=== PATIENT | male | born 1960 | race Caucasian/White ===

== ENCOUNTER 2017-10-17 17:49 | Emergency (ER) | payer OTHER ==
[~2017-10-17] VITALS: Ht 175.3 cm; Wt 83.9 kg
[~2017-10-17 17:49] MED LIST: ASPIRIN; ASPIRIN325 PO; CLOPIDOGREL; EFFIENT10 MG PO; EZETIMIBE; LOPRESSOR; NITROGLYCERIN0.4 MG SUBLING; PLAVIX 75 MG TA75 M1 PO; QUINAPRIL HCL5 MG PO; QUINU5 PD; SIMVASTATIN40 MG PO; ZETIA10 MG PO; ZOCOR
[2017-10-17] MEDS ORDERED: KEFLEX500 M1 PO (18:44)
[2017-10-17 18:52] VITALS: BP 130/80
== END 2017-10-17 18:53 | disposition home or self-care (01) ==
LOC: M.ERS 17:49
DX: S61.212A Laceration without foreign body of right middle finger without damage to nail, initial encounter (principal); E78.5 Hyperlipidemia, unspecified; I25.10 Atherosclerotic heart disease of native coronary artery without angina pectoris; W22.03XA Walked into furniture, initial encounter; Y93.89 Activity, other specified; Y92.89 Other specified places as the place of occurrence of the external cause; Y99.8 Other external cause status

== ENCOUNTER → 2018-05-17 | Outpatient (CLI) | payer OTHER ==
[~2018-05-17] MED LIST changes: +KEFLEX500 M1 PO
--- NOTE | 2018-05-17 11:11 | CARDNUC ---
[place] [address] CARDIAC NUCLEAR IMAGING REPORT Name: MYRNA DUMONT Room: [facility]#: [id number] Admission: 05/17/18 Attend Phys: Zac Quinones, Discharge: Date of : 56 Date of Service: 05/17/18 1111 Report #: [id number] THIS REPORT FOR: //name// APPROVED REPORT Study performed: 05/17/2018 07:45:00 Indication: sp pci Patient Location: Out-Patient Stress Tech: [facility] Stress Nurse: Brenna Herron RN Ht: 5 ft 7 in Wt: 200 lbs BSA: 2.02 m2 BMI: 31.32 Medical History Medical History: cad, pci with 5 stents, hypertension Medications: aspirin 325, ezetimibe, quinapril, simvastatin Allergies: nkda Cardiac Risk Factors: age, hypertension Previous Cardiac Procedures: pci Exercise History: Physically active Resting Data Rest SPECT myocardial perfusion imaging was performed in supine position 30 minutes following the intravenous injection of 11.4 mCi of Tc-99m Sestamibi. Time of rest injection: 08:05 The images were gated to evaluate regional wall motion and calculate left ventricular ejection fraction. Administration Route: IV Administration Site: Right Hand Exercise Stress At peak stress, the patient was injected intravenously with 36.0mCi of Tc-99m Sestamibi. Time of stress injection: 09:45 Administration Route: IV Administration Site: Right Hand Heart Rate at time of stress injection: 146 bpm. Gated Stress SPECT was performed 30 minutes after stress injection. The images were gated to evaluate regional wall motion and calculate [place] [address] CARDIAC NUCLEAR IMAGING REPORT Name: MYRNA DUMONT Room: [facility]#: [id number] Admission: 05/17/18 Attend Phys: Zac Quinones, Discharge: Date of : 56 Date of Service: 05/17/18 1111 Report #: [id number] Prone imaging was performed. Stress Test Details Stress Test: Exercise stress testing was performed using a Delio protocol. HR Max Heart Rate (APMHR): 161 bpm Resting HR: 60 bpm Target HR (85% APMHR): 136 bpm Max HR Achieved: 146 bpm % of APMHR: 90 Recovery HR: 81 bpm BP Resting BP: 122/71 mmHg Recovery BP: 146/73 mmHg ECG Resting ECG: Sinus Rhythm, normal EKG Stress ECG: Sinus Tachycardia ST Change: None Arrhythmia: None Recovery ECG: Sinus Rhythm Recovery ST Change: None Recovery Arrhythmia: None Clinical Reason for Termination: Fatigue Exercise duration: 10 min 42 sec Exercise capacity: 12.94 METs Overall Exercise Capacity for Age: Normal Functional Aerobic Impairment 86% The patient exhibited excellent exercise tolerance. He tolerated standard Delio protocol exercise without significant chest pain. Stress ECG Conclusion The baseline 12-lead EKG shows sinus rhythm without significant ST or T wave abnormality. EKGs during and post exercise stress show sinus rhythm and sinus tachycardia with no significant ST or T wave changes when compared to baseline. There were no stress-induced arrhythmias. Study Quality Study: Good Artifact: [place] [address] CARDIAC NUCLEAR IMAGING REPORT Name: MYRNA DUMONT Room: [facility]#: [id number] Admission: 05/17/18 Attend Phys: Zac Quinones, Discharge: Date of : 56 Date of Service: 05/17/18 1111 Report #: [id number] Study Data At rest, the left ventricular ejection fraction was 72%.. Post stress, the left ventricular ejection was 75%.. TID = 1.04. Perfusion Myocardial perfusion images obtained in the supine position at rest and post stress showed mild photopenia involving the basal to mid inferior wall that resolves completely with prone imaging consistent with diaphragmatic attenuation artifact. No other significant fixed or reversible defects are noted. Wall Motion Normal left ventricular wall motion. Nuclear Conclusion ECG Findings: negative for ischemia Clinical Findings: negative for ischemia Nuclear Findings: negative for ischemia Exercise Capacity: normal Left Ventricular Function: normal Risk Study: low Myocardial perfusion images show no defect to suggest infarct or ischemia. Left ventricular systolic function appears normal on gated studies. This is a low risk study. <Conclusion> The baseline 12-lead EKG shows sinus rhythm without significant ST or T wave abnormality. EKGs during and post exercise stress show sinus rhythm and sinus tachycardia with no significant ST or T wave changes when compared to baseline. There were no stress-induced arrhythmias. <ELECTRONICALLY SIGNED> By: Zac Quinones MD, FACC 05/17/18 1111 1111 1111 Zac Quinones MD, FACC /INF
== END ==
LOC: M.NUC 05-07 16:57
DX: I25.119 Atherosclerotic heart disease of native coronary artery with unspecified angina pectoris (principal); Z98.61 Coronary angioplasty status

== ENCOUNTER 2020-11-13 10:40 | Day surgery (SDC) | payer BC ==
[~2020-11-13] VITALS: Ht 175.3 cm; Wt 88.5 kg
[2020-11-13] MEDS ORDERED: METFORMIN HCL500 M3 PO (10:53)
[2020-11-13 11:10] LABS: ABSOLUTE BASOPHILS 0.1 thou/uL (0.0-0.2); ABSOLUTE EOSINOPHILS 0.2 thou/uL (0.0-0.7); ABSOLUTE MONOCYTES 0.8 thou/uL (0.0-1.2); BASOPHILS 0.6 %; EOSINOPHILS 1.6 %; HEMATOCRIT 44.4 % (42.0-52.0); HEMOGLOBIN 15.2 gm/dL (14.0-18.0); LYMPHOCYTES 20.2 %; MCH 30.7 pg (26.0-34.0); MCHC 34.3 g/dL (28.0-37.0); MCV 89.6 fL (80.0-100.0); NUCLEATED RBCS 0 /100WBC; PLATELET COUNT* 153 thou/uL (150-400); POLYS 69.6 %; RBC 4.96 mil/uL (4.50-6.00); RDW-CV 13.3 % (10.5-14.5); WBC 10.1 thou/uL (4.0-11.0)
[2020-11-13 11:18] LABS: CALCIUM 8.9 mg/dL (8.5-10.1); POTASSIUM 3.8 mmol/L (3.5-5.1)
[2020-11-13 11:31] LABS: APTT 22.8 Seconds (25.0-31.3); PROTIME 10.5 Seconds (9.20-11.50)
[2020-11-13 11:32] LABS: ALBUMIN 3.6 g/dL (3.4-5.0); CK-MB MASS 0.7 ng/mL (<0.5-3.6); MAGNESIUM 2.1 mg/dL (1.8-2.4); TOTAL BILIRUBIN 0.4 mg/dL (<0.1-1.0); TOTAL PROTEIN 6.9 g/dL (6.4-8.2)
[2020-11-13 12:45] VITALS: BP 116/66
--- NOTE | 2020-11-13 15:25 | CARD ---
[address] [address] CARDIAC CATH REPORT Name: MYRNA DUMONT Room: [address] M.R.#: [id number] Admission: 11/13/20 Attend Phys: Sal Paul MD, F Discharge: Date of : 56 Report #: [id number] THIS REPORT FOR: cc: Jose Roberto Stack MD, Anthony MD Blick, David R. MD [facility] ~ APPROVED REPORT Study performed: 11/13/2020 12:21:24 Patient Details Patient Status: Out-Patient Room #: ED The patient is a 60 year-old male Event Personnel Sal Paul Playground Monitor; Britt Jett,KAE Circulate; Behzad Amanda,RTR Scrub; Mariah Francis,RTR Monitor Procedures Performed Right radial artery access, Left Heart Cath and Coronaries, Hemostasis with Vasc band Indication Chest pain Risk Factors Arterial Hypertension, Hypercholesterolemia, Coronary Artery Disease, Diabetes Previous Procedures/Diagnoses Previous PCI Admission/Lab Medications/Medications given during procedure Heparin Unfract., Heparin 4500 units IV bolus, NTG 400 mcg IA, Verapamil 5 mg IA Procedure Narrative The patient was brought urgently to the Cardiac Catheterization Laboratory and was prepped and draped in a sterile manner. The right wrist was infiltrated with 1% Lidocaine subcutaneous anesthesia. IV conscious sedation was used throughout procedure with appropriate monitoring and was performed in the presence of a registered nurse who was an independent trained observer other than the physician performing the procedure. A 6F Slender sheath was [place] [address] CARDIAC CATH REPORT Name: MYRNA DUMONT Room: [address]#: [id number] Admission: 11/13/20 Attend Phys: Sal Paul MD, F Discharge: Date of : 56 Report #: [id number] right radial artery. Coronary angiography was performed using coronary diagnostic catheters. The right coronary system was accessed and visualized with a 6F JR4 catheter. The left coronary system was accessed and visualized with a 6F JL4 catheter. The left ventricle was accessed and visualized with a 6F Pigtail catheter. Left ventricular/Aortic Valve gradient assessed via catheter pullback. Left ventriculogram was performed in [place] projection. Closure device was deployed with a 6 Fr 24 cm Vasc band. The patient tolerated the procedure well and there were no complications associated with the procedure. There was no hematoma. Intraoperative Conscious Sedation Sedation start time: 13:10 Case end Time: 13:32 Versed 2.0 mg Fluoro Time: 2.8 minutes Dose: DAP 98805 cGycm2 726 mGy Contrast Type and Amount: Omnipaque 100 cc Coronary Angiography The patient's coronary anatomy is co- dominant. Diagnostic Cath Left Main 0% stenosis LAD stent in the mid LAD had 0% restenosis Diagonal 2 small vessel with ostial 60% stenosis Circumflex distal stent had 0% restenosis L PDA small vessel that appeared chronically occluded in its mid portion and filled distally by bridging collaterals Right Coronary 30% proximal stenosis. Stent in the proximal and mid RCA had 0% restenosis. 60% mid stenosis just beyond the stent, and a 60% distal stenosis noted just prior to the distal bifurcation. Left Ventriculography The left ventricular ejection fraction is estimated to be 60-65%. Left ventricular wall motion abnormalities are not present. There is no mitral insufficiency. Hemodynamics The left ventricular end diastolic pressure is 12 mmHg. There was no gradient across the aortic valve upon pullback. Pullback from the left ventricle to the aorta revealed no gradient across the [place] [address] CARDIAC CATH REPORT Name: MYRNA DUMONT Room: [address]#: [id number] Admission: 11/13/20 Attend Phys: Sal Paul MD, F Discharge: Date of : 56 Report #: [id number] Conclusion 1. no restenosis noted of stents in the mid LAD, distal circumflex, and proximal RCA. 2. chronic occlusion of a small distal circumflex branch 3. LVEF 60-65% Recommendations Aggressive Medical Therapy <ELECTRONICALLY SIGNED> By: Sal Paul MD, [facility] 11/13/20 1524 1524 1524Dkelley Paul MD, FACC /INF
--- NOTE | 2020-11-13 15:44 | EKG ---
[place] [address] ELECTROCARDIOGRAM REPORT Name: TIMMYRNA Room: [address]#: [id number] Admission: 11/13/20 Attend Phys: Sal Paul MD Discharge: Date of : 56 Date of Service: 11/13/20 1045 Report #: [id number] THIS REPORT FOR: //name// [facility] ED Test Date: 2020-11-13 Test Time: 10:45:59 Pat Name: MYRNA DUMONT Department: Room: Gender: M Shoe Shanker: BONNY : 1960 Requested By: Omar Sanchez Order Number: [id number] MD: Sal Paul Measurements Intervals [place] Rate: 80 P: 34 OH: 151 QRS: 8 QRSD: 75 T: 30 QT: 369 QTc: 426 Interpretive Statements Sinus rhythm Compared to ECG 03/28/2016 08:58:54 No significant changes Electronically Signed On 11-13-2020 15:43:47 CDT by Sal Paul [email or web address] <ELECTRONICALLY SIGNED> By: Sal Paul MD, [facility] 11/13/20 1543 1045 1045 Sal Paul MD, [facility] /EPI
--- NOTE | 2020-11-13 16:39 | CON ---
[address] [address] CONSULTATION Name: MYRNA DUMONT Room: [address] M.Diego.#: [id number] Admission: 11/13/20 Attend Phys: Sal Paul MD, F Discharge: Date of : 56 Report #: [id number] THIS REPORT FOR: cc: Jose Roberto Stack MD, Anthony MD Blick,Sal Mendoza MD [facility] ~ DATE OF SERVICE: 11/13/2020 CARDIOLOGY CONSULTATION HISTORY OF PRESENT ILLNESS: The patient is a 60-year-old male who I was asked to see in the Emergency Room today after he complained of chest pain. The patient states that 15 years ago, he is having jaw pain. He was transferred to [facility] and had 3 coronary artery stents placed while he was cared for by Dr. Tucrios. He then notes that in 2016, he had some shoulder pain and had 2 additional coronary stents placed here at [facility] by Dr. Ledezma. He has been followed by Dr. Ledezma since that time. He notes he last saw Dr. Ledezma about a month ago. His last stress test was several years ago. He stays very active. Today, he went for a walk and felt weak. He went home and after he ate, felt a discomfort in his chest. He denied any radiation of the pain, shortness of breath, diaphoresis, nausea. He then took 2 nitroglycerins and the pain resolved. He denied any fever, cough, bleeding. Denied trauma to his chest. He denied exertional dyspnea, palpitations or syncope. PAST MEDICAL HISTORY: He has had previous knee surgery, has a history of diabetes, hyperlipidemia, hypertension. MEDICATIONS: Include aspirin, Zetia, quinapril, simvastatin, metformin. ALLERGIES: He has no known drug allergies. FAMILY HISTORY: Diabetes runs in the family. SOCIAL HISTORY: He is . He and his live in [place]. 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 No smoking or alcohol abuse. REVIEW OF SYSTEMS: No history of stroke, asthma, liver disease, kidney disease, cancer, psychiatric illness, chronic skin condition. PHYSICAL EXAMINATION: GENERAL: Revealed a middle-aged male, who appeared in no distress. VITAL SIGNS: Blood pressure 116/66, pulse 70, he is afebrile. HEENT: He was anicteric. Conjunctivae pink. Mucous membranes were moist. NECK: Veins were not distended. There were no carotid bruits[place] [address] CONSULTATION Name: MYRNA DUMONT Room: [address]#: [id number] Admission: 11/13/20 Attend Phys: Sal Paul MD, F Discharge: Date of : 56 Report #: [id number] CHEST: Clear to auscultation. CARDIOVASCULAR: Regular rate and rhythm without murmur or rub. ABDOMEN: Soft. EXTREMITIES: Had no edema. Posterior tibial pulse 2+ bilaterally. SKIN: Cool and dry. NEUROLOGIC: Nonfocal. RADIOLOGICAL DATA: ECG showed a sinus rhythm. There were nonspecific ST and T-wave changes noted. His workup, he had a portable chest x-ray that showed normal heart size and clear lung archibald. LABORATORY WORK: Sodium 140, creatinine 1.0. His liver function studies were normal. Troponin 0.06. His white blood cell count 10.1, hemoglobin 15.2. The patient had a nuclear stress test back here in 2007 at [facility] that showed an ejection fraction of 72%, that suggested diaphragmatic attenuation. IMPRESSION AND RECOMMENDATIONS: 1. Unstable angina. Recommend repeat cardiac catheterization. 2. Hypertension. The patient is on an DIEGO inhibitor. 3. Hyperlipidemia. The patient is on Zetia and simvastatin. 4. Diabetes. <ELECTRONICALLY SIGNED> By: Sal Paul MD, FACC 11/13/20 1639 1210 1227Dajan Paul MD, FACC /nt
== END 2020-11-13 15:38 | disposition home or self-care (01) ==
LOC: M.ERS 10:40 → M.CL 12:45 → M.TBA-CV 12:45 → M.CL 15:38
PROVIDERS: Family Medicine; ATTEND Internal Medicine Cardiovascular Disease
DX: R07.9 Chest pain, unspecified (principal); I25.10 Atherosclerotic heart disease of native coronary artery without angina pectoris; I10 Essential (primary) hypertension; E78.00 Pure hypercholesterolemia, unspecified; E11.9 Type 2 diabetes mellitus without complications; E78.5 Hyperlipidemia, unspecified; I25.2 Old myocardial infarction; Z98.890 Other specified postprocedural states; Z79.899 Other long term (current) drug therapy; Z79.82 Long term (current) use of aspirin